=== PATIENT | male | born 1980 | race American Indian/Alaskan Native ===

== ENCOUNTER → 2025-11-05 | Outpatient (CLI) | payer BC, SELFPAY ==
--- NOTE | 2025-11-05 15:48 | XR_ITS ---
EXAMINATION: PA lateral chest 2 views TECHNIQUE: Upright PA lateral chest 2 views Date and time: November 05, 2025, 1601 hours INDICATION: Cough and shortness of breath beginning 1 week ago. FINDINGS: Normal heart size No pneumonia or pulmonary edema. Mild osteopenia. IMPRESSION: No active disease
== END | disposition home or self-care (01) ==
LOC: CDIM 15:44
PROVIDERS: Referring Provider Nurse Practitioner Family; Visit Provider Nurse Practitioner Family
DX: R05.9 Cough, unspecified (principal); R06.02 Shortness of breath
CPT/HCPCS: 71046